=== PATIENT | male | born 2000 | race Caucasian/White ===

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

== ENCOUNTER 2021-11-06 22:07 | Emergency (ER) | payer OTHER ==
[2021-11-06 22:23] LABS: Basophils % (A) 0 %; Eosinophils # (A) 0.1 k/uL (0-0.7); Eosinophils % (A) 1 %; HCT 48.5 % (39.0-53.0); HGB 16.2 gm/dL (13.0-17.5); Lymphocytes % (A) 8 %; MCH 31.6 pg (25.0-35.0); MCHC 33.4 g/dL (31.0-37.0); MCV 94.5 fL (80.0-100.0); Mean Platelet Volume 8.8; Monocytes # (A) 0.5 k/uL (0-1.0); Monocytes % (A) 4 %; Neutrophils # (A) 11.2 k/uL (1.3-7.7); Neutrophils % (A) 86 %; Platelet Count 238 k/uL (150-450); RBC 5.14 m/uL (4.30-5.90); RDW 13.1 % (11.5-15.5)
[2021-11-06 22:36] LABS: ALT 60 U/L (4-49); AST 42 U/L (17-59); African American GFR (CKD) >90 (>60 ml/min/1.73 sqM); Albumin 4.8 g/dL (3.5-5.0); Alkaline Phosphatase 66 U/L (38-126); Amylase 61 U/L (30-110); Anion Gap 9 mmol/L; Blood Urea Nitrogen 15 mg/dL (9-20); Calcium 9.2 mg/dL (8.4-10.2); Carbon Dioxide 26 mmol/L (22-30); Chloride 104 mmol/L (98-107); Glucose 100 mg/dL (74-99); Lipase 37 U/L (23-300); Non-African American GFR(CKD) >90 (>60 ml/min/1.73 sqM); Potassium 4.7 mmol/L (3.5-5.1); Sodium 139 mmol/L (137-145); Total Bilirubin 1.3 mg/dL (0.2-1.3); Total Protein 8.2 g/dL (6.3-8.2)
--- NOTE | 2021-11-06 22:37 | XR ---
EXAMINATION TYPE: XR KUB DATE OF EXAM: 11/06/2021 COMPARISON: NONE HISTORY: Vomiting TECHNIQUE: 2 views upright FINDINGS: There is no sign of intestinal obstruction or pneumoperitoneum. Fecal pattern is normal. Th ere are no calcifications over the kidneys. Lung bases are clear. IMPRESSION: Nonacute abdomen.
[2021-11-06] MEDS ORDERED: ONDANSETRON ODT 4 MG TAB PO STA (22:42)
[2021-11-07] MEDS ORDERED: ONDANSETRON 4 MG ODT STARTER PACK 2 TAB BTL PO STA (00:15)
--- NOTE | 2021-11-07 00:31 | ED ---
Abdominal Pain HPI - General Chief Complaint: Abdominal Pain Stated Complaint: Vomiting,Nausea Time Seen by Provider: 11/07/21 00:04 Source: patient Mode of arrival: ambulatory - History of Present Illness Initial Comments: Final is a 21-year-old male presents the emergency department today via ambulance for evaluation of epigastric discomfort nausea and vomiting. Patient reports he's had nausea and vomiting throughout the day today. Patient did test positive or COVID 2 days ago but was not having any symptoms yesterday she did not believe it was related. No suspicious food intake no diarrhea. Patient received pain medication in route to the hospital he then had some vomiting upon waiting to be evaluated. He reports feeling much better after Zofran. - Related Data Home Medications Medication Instructions Recorded Confirmed Ibuprofen 800 mg PO DAILY PRN 10/10/17 10/10/17 Previous Rx's Medication Instructions Recorded HYDROcodone/APAP 5-325MG [[place] 1 tab PO Q6HR PRN #12 tab 10/11/17 5-325] Ibuprofen [Motrin] 600 mg PO Q8HR PRN #24 tab 10/11/17 Ondansetron Odt [Zofran Odt] 4 mg PO Q8HR PRN #10 tab 07/21/21 Allergies Allergy/AdvReac Type Severity Reaction Status Date / Time No Known Allergies Allergy Verified 11/06/21 22:41 Review of Systems ROS Statement: Those systems with pertinent positive or pertinent negative responses have been documented in the HPI. ROS Other: All systems not noted in ROS Statement are negative. Past Medical History Past Medical History: No Reported History History of Any Multi-Drug Resistant Organisms: None Reported Past Surgical History: No Surgical Hx Reported Past Psychological History: ADD/ADHD, Anxiety, Depression Smoking Status: Current every day smoker Past Alcohol Use History: None Reported Past Drug Use History: Marijuana General Exam - General Exam Comments Initial Comments: Physical Exam GENERAL: Patient is well-developed and well-nourished. Patient is nontoxic and well-hydrated and is in no distress. HENT: Normocephalic, Atraumatic. EYES: PERRL, EOMI PULMONARY: Unlabored respirations. CARDIOVASCULAR: RRR Warm and well perfused extremities ABDOMEN: Soft, Non-distended Non peritoneal SKIN: No rashes or bruising : Deferred NEUROLOGIC: Alert and oriented Normal speech Normal gait MUSCULOSKELETAL: Moving all extremities with no apparent injury PSYCHIATRIC: No SI/HI Course Vital Signs 11/06/21 22:30 Temperature 97.9 F Pulse Rate 63 Respiratory 19 Rate Blood Pressure 109/71 O2 Sat by Pulse 96 Oximetry Medical Decision Making - Medical Decision Making Patient labs and imaging were ordered from triage, patient's positive or COVID has mild leukocytosis other significant abnormalities Patient's feeling better after Zofran no further vomiting tolerating oral intake drinking water will be given a Zofran starter pack and prescribed Zofran for home. - Lab Data Result diagrams: 11/06/21 22:12 11/06/21 22:12 Lab Results 11/06/21 11/06/21 11/06/21 Range/Units 22:12 22:12 22:46 WBC 13.0 H (3.8-10.6) k/uL RBC 5.14 (4.30-5.90) m/uL Hgb 16.2 (13.0-17.5) gm/dL Hct 48.5 (39.0-53.0) % MCV 94.5 (80.0-100.0) fL MCH 31.6 (25.0-35.0) pg MCHC 33.4 (31.0-37.0) g/dL RDW 13.1 (11.5-15.5) % Plt Count 238 (150-450) k/uL MPV 8.8 Neutrophils % 86 % Lymphocytes % 8 % Monocytes % 4 % Eosinophils % 1 % Basophils % 0 % Neutrophils # 11.2 H (1.3-7.7) k/uL Lymphocytes # 1.0 (1.0-4.8) k/uL Monocytes # 0.5 (0-1.0) k/uL Eosinophils # 0.1 (0-0.7) k/uL Basophils # 0.0 (0-0.2) k/uL Sodium 139 (137-145) mmol/L Potassium 4.7 (3.5-5.1) mmol/L Chloride 104 (98-107) mmol/L Carbon Dioxide 26 (22-30) mmol/L Anion Gap 9 mmol/L BUN 15 (9-20) mg/dL Creatinine 0.95 (0.66-1.25) mg/dL Est GFR (CKD-EPI)AfAm >90 (>60 ml/min/1.73 sqM) Est GFR (CKD-EPI)NonAf >90 (>60 ml/min/1.73 sqM) Glucose 100 H (74-99) mg/dL Calcium 9.2 (8.4-10.2) mg/dL Total Bilirubin 1.3 (0.2-1.3) mg/dL AST 42 (17-59) U/L ALT 60 H (4-49) U/L Alkaline Phosphatase 66 (38-126) U/L Total Protein 8.2 (6.3-8.2) g/dL Albumin 4.8 (3.5-5.0) g/dL Amylase 61 (30-110) U/L Lipase 37 (23-300) U/L Coronavirus (PCR) (Not Detectd) Influenza Type A RNA Not Detected (Not Detectd) Influenza Type B (PCR) Not Detected (Not Detectd) 11/06/21 Range/Units 22:46 WBC (3.8-10.6) k/uL RBC (4.30-5.90) m/uL Hgb (13.0-17.5) gm/dL Hct (39.0-53.0) % MCV (80.0-100.0) fL MCH (25.0-35.0) pg MCHC (31.0-37.0) g/dL RDW (11.5-15.5) % Plt Count (150-450) k/uL MPV Neutrophils % % Lymphocytes % % Monocytes % % Eosinophils % % Basophils % % Neutrophils # (1.3-7.7) k/uL Lymphocytes # (1.0-4.8) k/uL Monocytes # (0-1.0) k/uL Eosinophils # (0-0.7) k/uL Basophils # (0-0.2) k/uL Sodium (137-145) mmol/L Potassium (3.5-5.1) mmol/L Chloride (98-107) mmol/L Carbon Dioxide (22-30) mmol/L Anion Gap mmol/L BUN (9-20) mg/dL Creatinine (0.66-1.25) mg/dL Est GFR (CKD-EPI)AfAm (>60 ml/min/1.73 sqM) Est GFR (CKD-EPI)NonAf (>60 ml/min/1.73 sqM) Glucose (74-99) mg/dL Calcium (8.4-10.2) mg/dL Total Bilirubin (0.2-1.3) mg/dL AST (17-59) U/L ALT (4-49) U/L Alkaline Phosphatase (38-126) U/L Total Protein (6.3-8.2) g/dL Albumin (3.5-5.0) g/dL Amylase (30-110) U/L Lipase (23-300) U/L Coronavirus (PCR) Detected A (Not Detectd) Influenza Type A RNA (Not Detectd) Influenza Type B (PCR) (Not Detectd) Disposition Clinical Impression: COVID-19, Nausea and vomiting Disposition: HOME SELF-CARE Condition: Stable Is patient prescribed a controlled substance at d/c from ED?: No Referrals: None,Stated [Primary Care Provider] - 1-2 days
[2021-11-07 00:47] VITALS: BP 122/82; PULSE 79; RESP 20; TEMP 98.8
== END 2021-11-07 00:47 | disposition home or self-care (01) ==
LOC: EC 22:07
DX: U07.1 COVID-19 (principal); F90.9 Attention-deficit hyperactivity disorder, unspecified type; F41.9 Anxiety disorder, unspecified; F32.A Depression, unspecified; F17.200 Nicotine dependence, unspecified, uncomplicated; F12.90 Cannabis use, unspecified, uncomplicated
CPT/HCPCS: 36415; 74018; 80053; 82150; 83690; 85025; 87502; 87635; 99284

== ENCOUNTER 2022-01-20 20:40 | Emergency (ER) | payer OTHER ==
[2022-01-20 20:53] VITALS: BP 118/59; PULSE 95; RESP 16; TEMP 98.1
--- NOTE | 2022-01-20 21:40 | ED ---
Alcohol HPI - General Chief Complaint: Alcohol Stated Complaint: ETOH, Mental Health Time Seen by Provider: 01/20/22 21:06 Source: patient, EMS Mode of arrival: EMS Limitations: no limitations - History of Present Illness Initial Comments: This patient is 21-year-old man who is complaining of depression and drinking. He does acknowledge that he some suicidal statements to his girlfriend earlier today. He has had previous psychiatric care and states that tried him with antidepressants but they seem to make him feel worse. He is not currently takin g any medications. Patient denies any injury or trauma related to drinking tonight. MD Complaint: alcohol intoxication Time Since Last Drink: 1 -: hour(s) Associated Symptoms: depression, suicidality Treatments Prior to Arrival: none Chronic Alcohol Use: Yes - Related Data Home Medications Medication Instructions Recorded Confirmed Ibuprofen 800 mg PO DAILY PRN 10/10/17 10/10/17 Previous Rx's Medication Instructions Recorded HYDROcodone/APAP 5-325MG [[place] 1 tab PO Q6HR PRN #12 tab 10/11/17 5-325] Ibuprofen [Motrin] 600 mg PO Q8HR PRN #24 tab 10/11/17 Ondansetron Odt [Zofran Odt] 4 mg PO Q8HR PRN #10 tab 07/21/21 Ondansetron [Zofran ODT] 4 mg PO Q8HR #12 tab 11/07/21 Allergies Allergy/AdvReac Type Severity Reaction Status Date / Time No Known Allergies Allergy Verified 11/06/21 22:41 Review of Systems ROS Statement: Those systems with pertinent positive or pertinent negative responses have been documented in the HPI. ROS Other: All systems not noted in ROS Statement are negative. Constitutional: Denies: fever, chills Respiratory: Denies: cough, dyspnea Cardiovascular: Denies: chest pain, palpitations Gastrointestinal: Denies: abdominal pain, vomiting, diarrhea Genitourinary: Denies: dysuria Neurological: Denies: headache, weakness Psychiatric: Reports: depression, suicidal thoughts. Denies: auditory hallucinations, visual hallucinations, homicidal thoughts Past Medical History Past Medical History: No Reported History History of Any Multi-Drug Resistant Organisms: None Reported Past Surgical History: No Surgical Hx Reported Past Psychological History: ADD/ADHD, Anxiety, Depression Smoking Status: Current every day smoker Past Alcohol Use History: None Reported Past Drug Use History: Marijuana General Exam Limitations: no limitations General appearance: alert, in no apparent distress Head exam: Present: atraumatic, normocephalic Eye exam: Present: normal appearance. Absent: scleral icterus, conjunctival injection Neck exam: Present: normal inspection, full ROM Respiratory exam: Present: normal lung sounds bilaterally. Absent: respiratory distress, wheezes, rales, rhonchi, stridor Cardiovascular Exam: Present: regular rate, normal rhythm, normal heart sounds. Absent: systolic murmur, diastolic murmur, rubs, gallop GI/Abdominal exam: Present: soft. Absent: distended, tenderness, guarding, rebound, rigid, mass Extremities exam: Present: normal inspection, normal capillary refill. Absent: pedal edema, calf tenderness Back exam: Present: normal inspection Neurological exam: Present: alert, oriented X3 Psychiatric exam: Present: depressed, suicidal ideation. Absent: agitated, anxious, flat affect, manic, homicidal ideation Skin exam: Present: warm, dry, intact, normal color. Absent: rash Course Vital Signs 01/20/22 20:49 Temperature 98.1 F Pulse Rate 95 Respiratory 16 Rate Blood Pressure 118/59 O2 Sat by Pulse 97 Oximetry Medical Decision Making - Medical Decision Making The patient is 21-year-old man here after he admits some suicidal statements earlier at home. The patient requested to go home. I did interview him and he states that he did make statements that were indicating suicidal ideation but that he had been drinking. He states that he has a lot to live for and inclu ding a young child at home. He states that he will return should should he start feeling worse. Patient advised not to drink any alcohol. Disposition Clinical Impression: Alcoholic intoxication, Mood disorder Disposition: HOME SELF-CARE Condition: Good Instructions (If sedation given, give patient instructions): Alcohol Intoxication (ED) Is patient prescribed a controlled substance at d/c from ED?: No Referrals: None,Stated [Primary Care Provider] - 1-2 days
[2022-01-20] MEDS ORDERED: LORazepam 2 MG/ML INJ IM STA (22:28)
== END 2022-01-20 23:01 | disposition home or self-care (01) ==
LOC: EC 20:40
DX: F10.129 Alcohol abuse with intoxication, unspecified (principal); F39 Unspecified mood [affective] disorder; F17.200 Nicotine dependence, unspecified, uncomplicated

== ENCOUNTER 2022-02-24 18:08 | Inpatient (IN) | payer MEDICAID, OTHER ==
[2022-02-24 18:22] LABS: Glucose,Whole Blood 88 mg/dL (70-110)
--- NOTE | 2022-02-24 18:23 | ED ---
Trauma HPI - General Stated Complaint: Trauma Time Seen by Provider: 02/24/22 18:08 Source: patient, RN notes reviewed - History of Present Illness Initial Comments: 21-year-old male history of depression who apparently try to hang himself with a rope dog leash prior to arrival he states he was about half a foot off the ground rope broke however before he passed out he did hit his head when he fell he denies a loss of function is upper or lower extremities he does admit to drinking alcohol today. He was found by paramedics to have some abrasion to the anterior neck consistent with the reports of trying to hang himself. Patient denies any shortness of breath difficulty with swallowing or speech at this time. No deficits to his upper or lower extremities. He did come in with a cervical collar on. MD Complaint: injury - Related Data Home Medications Medication Instructions Recorded Confirmed No Known Home Medications 02/24/22 02/24/22 Allergies Allergy/AdvReac Type Severity Reaction Status Date / Time No Known Allergies Allergy Verified 02/24/22 19:52 Review of Systems ROS Statement: Those systems with pertinent positive or pertinent negative responses have been documented in the HPI. ROS Other: All systems not noted in ROS Statement are negative. Past Medical History Past Medical History: No Reported History History of Any Multi-Drug Resistant Organisms: None Reported Past Surgical History: No Surgical Hx Reported Past Psychological History: ADD/ADHD, Anxiety, Depression Smoking Status: Current every day smoker Past Alcohol Use History: None Reported Past Drug Use History: Marijuana General Exam - General Exam Comments Initial Comments: This is a well-developed well-nourished awake alert oriented 4 male General appearance: alert, anxious Head exam: Present: atraumatic, normocephalic, normal inspection Eye exam: Present: normal appearance, PERRL, EOMI. Absent: scleral icterus, conjunctival injection, periorbital swelling ENT exam: Present: normal exam, normal oropharynx, mucous membranes moist Neck exam: Present: normal inspection, other (Cervical collar in place superficial abrasion seen over the anterior upper neck no localized edema no stridor JVD or bruits). Absent: tenderness, meningismus, lymphadenopathy Respiratory exam: Present: normal lung sounds bilaterally. Absent: respiratory distress, wheezes, rales, rhonchi, stridor Cardiovascular Exam: Present: regular rate, normal rhythm, normal heart sounds. Absent: systolic murmur, diastolic murmur, rubs, gallop, clicks GI/Abdominal exam: Present: soft, normal bowel sounds. Absent: distended, tenderness, guarding, rebound, rigid Extremities exam: Present: normal inspection, full ROM, normal capillary refill. Absent: tenderness, pedal edema, joint swelling, calf tenderness Back exam: Present: normal inspection Neurological exam: Present: alert, oriented X3, CN II-XII intact Psychiatric exam: Present: normal affect, normal mood Skin exam: Present: warm, dry, normal color, other (As noted above). Absent: rash Course Vital Signs 02/24/22 18:41 Temperature 98 F Pulse Rate 76 Respiratory 16 Rate Blood Pressure 122/63 O2 Sat by Pulse 97 Oximetry Medical Decision Making - Medical Decision Making Patient was activated priority 2 trauma did discuss case with Dr. Richardson. Patient is now medically cleared for psychiatric evaluation patient was eval uated by the EPS service she will be admitted inpatient for further evaluation treatment for suicidal thoughts and depression. - Lab Data Result diagrams: 02/24/22 18:31 02/24/22 18:31 Lab Results 02/24/22 02/24/22 02/24/22 Range/Units 18:20 18:31 18:31 WBC 8.5 (3.8-10.6) k/uL RBC 5.17 (4.30-5.90) m/uL Hgb 16.1 (13.0-17.5) gm/dL Hct 49.9 (39.0-53.0) % MCV 96.4 (80.0-100.0) fL MCH 31.2 (25.0-35.0) pg MCHC 32.4 (31.0-37.0) g/dL RDW 13.4 (11.5-15.5) % Plt Count 187 (150-450) k/uL MPV 8.7 Neutrophils % 71 % Lymphocytes % 21 % Monocytes % 6 % Eosinophils % 1 % Basophils % 1 % Neutrophils # 6.0 (1.3-7.7) k/uL Lymphocytes # 1.8 (1.0-4.8) k/uL Monocytes # 0.5 (0-1.0) k/uL Eosinophils # 0.1 (0-0.7) k/uL Basophils # 0.1 (0-0.2) k/uL PT 10.9 (9.0-12.0) sec INR 1.0 (<1.2) APTT 26.5 (22.0-30.0) sec Sodium (137-145) mmol/L Potassium (3.5-5.1) mmol/L Chloride (98-107) mmol/L Carbon Dioxide (22-30) mmol/L Anion Gap mmol/L BUN (9-20) mg/dL Creatinine (0.66-1.25) mg/dL Est GFR (CKD-EPI)AfAm (>60 ml/min/1.73 sqM) Est GFR (CKD-EPI)NonAf (>60 ml/min/1.73 sqM) Glucose (74-99) mg/dL POC Glucose (mg/dL) 88 (70-110) mg/dL POC Glu Chief Technical Officer ID Edi Russell Plasma Lactic Acid Hieu (0.7-2.0) mmol/L Calcium (8.4-10.2) mg/dL Total Bilirubin (0.2-1.3) mg/dL AST (17-59) U/L ALT (4-49) U/L Alkaline Phosphatase (38-126) U/L Troponin I (0.000-0.034) ng/mL Total Protein (6.3-8.2) g/dL Albumin (3.5-5.0) g/dL Serum Alcohol mg/dL 02/24/22 02/24/22 02/24/22 Range/Units 18:31 18:31 18:31 WBC (3.8-10.6) k/uL RBC (4.30-5.90) m/uL Hgb (13.0-17.5) gm/dL Hct (39.0-53.0) % MCV (80.0-100.0) fL MCH (25.0-35.0) pg MCHC (31.0-37.0) g/dL RDW (11.5-15.5) % Plt Count (150-450) k/uL MPV Neutrophils % % Lymphocytes % % Monocytes % % Eosinophils % % Basophils % % Neutrophils # (1.3-7.7) k/uL Lymphocytes # (1.0-4.8) k/uL Monocytes # (0-1.0) k/uL Eosinophils # (0-0.7) k/uL Basophils # (0-0.2) k/uL PT (9.0-12.0) sec INR (<1.2) APTT (22.0-30.0) sec Sodium 142 (137-145) mmol/L Potassium 4.7 (3.5-5.1) mmol/L Chloride 96 L (98-107) mmol/L Carbon Dioxide 31 H (22-30) mmol/L Anion Gap 15 mmol/L BUN 11 (9-20) mg/dL Creatinine 0.87 (0.66-1.25) mg/dL Est GFR (CKD-EPI)AfAm >90 (>60 ml/min/1.73 sqM) Est GFR (CKD-EPI)NonAf >90 (>60 ml/min/1.73 sqM) Glucose 87 (74-99) mg/dL POC Glucose (mg/dL) (70-110) mg/dL POC Glu Chief Technical Officer ID Plasma Lactic Acid Hieu 3.0 H* (0.7-2.0) mmol/L Calcium 9.9 (8.4-10.2) mg/dL Total Bilirubin 0.9 (0.2-1.3) mg/dL AST 37 (17-59) U/L ALT 51 H (4-49) U/L Alkaline Phosphatase 70 (38-126) U/L Troponin I <0.012 (0.000-0.034) ng/mL Total Protein 7.9 (6.3-8.2) g/dL Albumin 4.8 (3.5-5.0) g/dL Serum Alcohol <10 mg/dL - EKG Data -: EKG Interpreted by Me EKG shows normal: sinus rhythm EKG Comments: Sinus rhythm a 77. Interval 150 QRS duration 100 QT since QTC 360/400 nonspecific T-wave configuration - Radiology Data Radiology results: report reviewed (Image reviewed as well as report no acute findings.), image reviewed Critical Care Time Critical Care Time: Yes Total Critical Care Time: 39 Critical Care Time: Critical care time including initial presentation with history physical discussed with paramedics labs x-rays reevaluation patient on several occasions discussion with family. Discussed with the EPS service documentation the above review of old charting was available. Disposition Clinical Impression: Depression, Attempted suicide, Hanging, Neck abrasion Disposition: TRANSFER TO PSYCH HOSP/UNIT Condition: Stable Referrals: None,Stated [Primary Care Provider] - 1-2 days Decision Date: 02/24/22 Decision Time: 20:55
[2022-02-24 19:02] LABS: Basophils # (A) 0.1 k/uL (0-0.2); Basophils % (A) 1 %; Eosinophils # (A) 0.1 k/uL (0-0.7); Eosinophils % (A) 1 %; HCT 49.9 % (39.0-53.0); HGB 16.1 gm/dL (13.0-17.5); Lymphocytes # (A) 1.8 k/uL (1.0-4.8); Lymphocytes % (A) 21 %; MCH 31.2 pg (25.0-35.0); MCHC 32.4 g/dL (31.0-37.0); MCV 96.4 fL (80.0-100.0); Mean Platelet Volume 8.7; Monocytes # (A) 0.5 k/uL (0-1.0); Monocytes % (A) 6 %; Neutrophils % (A) 71 %; Platelet Count 187 k/uL (150-450); RBC 5.17 m/uL (4.30-5.90); RDW 13.4 % (11.5-15.5); WBC 8.5 k/uL (3.8-10.6)
[2022-02-24 19:11] LABS: Partial Thromboplastin Time 26.5 sec (22.0-30.0); Prothrombin Time 10.9 sec (9.0-12.0)
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
[2022-02-24 19:16] LABS: ALT 51 U/L (4-49); AST 37 U/L (17-59); African American GFR (CKD) >90 (>60 ml/min/1.73 sqM); Albumin 4.8 g/dL (3.5-5.0); Alcohol <10 mg/dL; Alkaline Phosphatase 70 U/L (38-126); Anion Gap 15 mmol/L; Blood Urea Nitrogen 11 mg/dL (9-20); Calcium 9.9 mg/dL (8.4-10.2); Carbon Dioxide 31 mmol/L (22-30); Chloride 96 mmol/L (98-107); Glucose 87 mg/dL (74-99); Non-African American GFR(CKD) >90 (>60 ml/min/1.73 sqM); Potassium 4.7 mmol/L (3.5-5.1); Sodium 142 mmol/L (137-145); Total Bilirubin 0.9 mg/dL (0.2-1.3); Total Protein 7.9 g/dL (6.3-8.2)
[2022-02-24] MEDS ORDERED: SODIUM CHLORIDE 0.9% 1,000 ML IV STA (19:29)
[2022-02-24] MEDS ORDERED: HALOPERIDOL LACTATE 5 MG/ML 1 ML VIAL IVP STA (21:27)
[2022-02-24] MEDS ORDERED: LORazepam 2 MG/ML INJ IV STA (21:28)
[2022-02-24 22:12] LABS: Amphetamine Screen,Urine Not Detected (NotDetected); Barbiturate Screen,Urine Not Detected (NotDetected); Benzodiazepines Screen,Urine Not Detected (NotDetected); Cocaine Screen,Urine Not Detected (NotDetected); Methadone Screen, Urine Not Detected (NotDetected); Opiate Screen,Urine Not Detected (NotDetected); Oxycodone Screen, Urine Not Detected (NotDetected); Phencyclidine Screen,Urine Not Detected (NotDetected); Tricyclic Antidepressant,Urine Not Detected (NotDetected); Urn Cannabinoid Scrn Detected (NotDetected)
[2022-02-24] MEDS ORDERED: HALOPERIDOL LACTATE 5 MG/ML 1 ML VIAL IM STA (22:19)
[2022-02-24] MEDS ORDERED: diphenhydrAMINE 50 MG/ML 1 ML VIAL IVP STA (22:20)
[2022-02-25] MEDS ORDERED: MAG HYDROX/AL HYDROX/SIMETH 30 ML CUP PO PRN (00:05)
[2022-02-25] MEDS ORDERED: LORazepam 1 MG TAB PO PRN (00:05)
[2022-02-25] MEDS ORDERED: HALOPERIDOL LACTATE 5 MG/ML 1 ML VIAL IM PRN (00:05)
[2022-02-25] MEDS ORDERED: ACETAMINOPHEN TAB 325 MG TAB PO PRN (00:05)
[2022-02-25] MEDS ORDERED: MAGNESIUM HYDROXIDE 2,400 MG/10 ML CUP PO PRN (00:05)
[2022-02-25] MEDS ORDERED: LORazepam 2 MG/ML INJ IM PRN (00:09)
[2022-02-25] MEDS ORDERED: haloperidoL 5 MG TAB PO PRN (00:10)
[2022-02-25] MEDS ORDERED: NICOTINE 14MG/24HR PATCH TRANSDERM SCH (09:00)
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
[2022-02-25] MEDS: FLUoxetine HCL 10 MG CAP PO SCH (17:40)
[2022-02-25] MEDS: NICOTINE GUM (POLACRILEX) 2 MG GUM BUCCAL PRN ×2 (18:23→20:41)
--- NOTE | 2022-02-25 23:15 | P.CONS ---
History of Present Illness - Reason for Consult Consult date: 02/25/22 - History of Present Illness The patient is a 21-year-old male with no known PMH who was brought into the emergency room by EMS after he was found attempting to hang himself. The patient was admitted to the mental health unit where he was seen and evaluated. The patient was reluctant to talk about the episode but stated that he had been drinking, which led to his erratic behavior. He denied any suicidal ideation. He denied any chronic medical illnesses. Reports only occasional alcohol use which she is trying to quit. Denied history of alcohol withdrawal. Denied experiencing chest discomfort, shortness of breath, fever, chills, cough, nausea, vomiting, abdominal pain, diarrhea. The patient's laboratory outpatient in the emergency room was remarkable for lactic acidosis of 3.0 with urine tox positive for marijuana. Review of systems: Pertinent positives and negatives as discussed in HPI, a complete review of systems was performed and all other systems are negative. Physical examination: General: non toxic, no distress, appears at stated age, normal weight Derm: no unusual rashes/lesions, no unusual ecchymoses, warm, dry Head: atraumatic, normocephalic, symmetric Eyes: EOMI, no lid lag, anicteric sclera ENT: Nose and ears atraumatic, no thrush, no pharyngeal erythema Neck: trachea midline, supple Mouth: no lip lesion, mucus membranes moist Cardiovascular: S1S2 reg, no murmur, no edema Lungs: CTA bilateral, no rhonchi, no rales , no accessory muscle use Abdominal: soft, nontender to palpation, no guarding Ext: no gross muscle atrophy, no contractures, Neuro: No gross focal neuro deficits noted Psych: Alert, oriented, appropriate affect Assessment/plan Marijuana and alcohol abuse -Advised on importance of cessation Depression with suicidal ideation -As per psychiatry Thank you for allowing us to participate in the care of this patient. We will follow peripherally. Do not hesitate to contact us with questions. Someone can be reached from the [facility] hospitalist group at all hours of the day at [phone]. Past Medical History Past Medical History: No Reported History History of Any Multi-Drug Resistant Organisms: None Reported Past Surgical History: No Surgical Hx Reported Past Psychological History: ADD/ADHD, Anxiety, Depression Smoking Status: Current every day smoker Past Alcohol Use History: None Reported Past Drug Use History: Marijuana - Past Family History Mother Family Medical History: Hypertension Medications and Allergies Home Medications Medication Instructions Recorded Confirmed Type No Known Home Medications 02/24/22 02/24/22 History Allergies Allergy/AdvReac Type Severity Reaction Status Date / Time No Known Allergies Allergy Verified 02/24/22 19:52 Physical Exam Vitals: Vital Signs Temp Pulse Resp BP 02/25/22 00:33 98.0 F 93 16 136/73 Results CBC & Chem 7: 02/24/22 18:31 02/24/22 18:31 Labs: Abnormal Lab Results - Last 24 Hours (Table) 02/24/22 Range/Units 21:32 U Marijuana (THC) Screen Detected H (NotDetected)
[2022-02-26] MEDS: FLUoxetine HCL 10 MG CAP PO SCH (08:37)
[2022-02-26] MEDS: NICOTINE GUM (POLACRILEX) 2 MG GUM BUCCAL PRN ×3 (11:00→20:37)
[2022-02-26 12:35] LABS: Basophils % (A) 0 %; Eosinophils % (A) 0 %; HCT 51.7 % (39.0-53.0); HGB 17.2 gm/dL (13.0-17.5); Lymphocytes # (A) 1.4 k/uL (1.0-4.8); Lymphocytes % (A) 19 %; MCH 32.7 pg (25.0-35.0); MCHC 33.3 g/dL (31.0-37.0); MCV 98.2 fL (80.0-100.0); Mean Platelet Volume 8.5; Monocytes # (A) 0.4 k/uL (0-1.0); Monocytes % (A) 6 %; Neutrophils # (A) 5.5 k/uL (1.3-7.7); Neutrophils % (A) 72 %; Platelet Count 206 k/uL (150-450); RBC 5.26 m/uL (4.30-5.90); RDW 13.6 % (11.5-15.5); WBC 7.6 k/uL (3.8-10.6)
[2022-02-26 12:48] LABS: ALT 62 U/L (4-49); AST 40 U/L (17-59); African American GFR (CKD) >90 (>60 ml/min/1.73 sqM); Alkaline Phosphatase 88 U/L (38-126); Anion Gap 14 mmol/L; Blood Urea Nitrogen 14 mg/dL (9-20); Calcium 10.2 mg/dL (8.4-10.2); Carbon Dioxide 28 mmol/L (22-30); Chloride 97 mmol/L (98-107); Glucose 101 mg/dL (74-99); Non-African American GFR(CKD) >90 (>60 ml/min/1.73 sqM); Potassium 5.2 mmol/L (3.5-5.1); Sodium 139 mmol/L (137-145); Total Bilirubin 1.4 mg/dL (0.2-1.3); Total Protein 8.5 g/dL (6.3-8.2)
--- NOTE | 2022-02-26 15:55 | P.PN ---
Progress Note - Text Progress Note Date: 02/26/22 Interval history: Patient was seen attending group and was directable and agreeable to speak with filing writer. He reports improved mood, and reports he slept well, but overall appears anxious on assessment. At this time, patient denies any suicidal or homicidal ideation, intent or plan. Denies any auditory or visual hallucinations. Patient denies any side effects from the medications and has been compliant with meds. Mental status exam: General Appearance: Patient appears to be stated age, has tattoos, improved hygiene. Behavior: Patient appears anxious without any agitated behavior. Speech: Patient's speech is fluent and non-pressured. Mood/Affect: Patient reports their mood is better, affect appears anxious and constricted. Suicidality/Homicidality: Patient denies having any homicidal ideation intent or plan. Denies any suicidal ideation, intent or plan. Perceptions: Patient denies any visual hallucinations and denies any auditory hallucinations. Though content/process: There is no evidence of any delusional thought content and thought process is linear and goal-directed. Memory and concentration: AOX3, grossly intact for the purposes of this session Judgment and insight: improving mildly Assessment/Plan: Continue with current diagnosis. Patient continues to meet criteria for inpatient psychiatric admission for symptom stabilization and safety. Will increase his Prozac to 20 mg daily for anxiety. Monitor for medication compliance and for any psychotropic medication side effects. Will continue to monitor ongoing response to treatment. Encouraged participation in milieu. He would like to attend outpatient substance abuse treatment after discharge and declines residential substance abuse treatment.
[2022-02-27] MEDS ORDERED: FLUoxetine HCL 20 MG CAP PO SCH (09:00)
[2022-02-27] MEDS: NICOTINE GUM (POLACRILEX) 2 MG GUM BUCCAL PRN ×3 (12:45→20:07)
[2022-02-28 06:38] VITALS: BP 109/65; PULSE 60; RESP 16; TEMP 98
[2022-02-28] MEDS: NICOTINE GUM (POLACRILEX) 2 MG GUM BUCCAL PRN (09:23)
--- NOTE | 2022-02-28 11:37 | P.PN ---
Progress Note - Text Progress Note Date: 02/27/22 S&O: Patient was seen in rounds. He was admitted on 02/24/2022 when he got intoxicated and tried to hang himself. Computed tomography scan of the neck and head where within normal limits. He said he does not drink on a regular basis but sometimes he goes on heavy binging. Said he was drinking since about 10:00 in the morning hard liquor along with high alcohol containing beer. He insists that that he did not have any other issues to make him to kill himself. He said he has a 5-month-old daughter and a girlfriend who he loves too much to kill himself. He said he smokes pot here and there but again he said he doesn't do it on a regular basis. He denies any ongoing mental health issues. His psychiatric H&P shows the diagnosis of unspecified depressive disorder unspecified anxiety disorder alcohol and cannabis use disorder mild to moderate. He was started on Prozac 20 mg a day and says he feels better after 2 days of its use. He was counseled about the ineffectiveness of Prozac in 2 days and was suggested that he feels better because alcohol had left his system, he is happy that he did not and is able to appreciate that he has a loving girlfriend and a daughter which probably made him feel better since Prozac doesn't work that quickly. He agreed. He said he will stop drinking and smoking pot, and tried to stay clean get a job and be with his family. This is a right ambulatory male with good hygiene. He has multiple tattoos. He is polite friendly cheerful and cooperative. He does not have any psychomotor agitation or retardation. His speech is spontaneous relevant and goal-directed. His mood is cheerful and affect is appropriate. He denies any hallucinations delusional thinking suicide and homicide thoughts. His sensorium is clear. A&P: Appears to have had acute alcohol intoxication delirium resulting in attempting to hang himself. Does not have enough information to make the diagnosis of anxiety disorder or depressive disorder. He agreed to stop Prozac and consider for discharge tomorrow.
--- NOTE | 2022-02-28 11:37 | P.DS ---
Providers Date of admission: 02/25/22 00:01 Expected date of discharge: 02/28/22 Attending physician: Jean Begum MD Consults: 02/25/22 00:05 Consult Physician Routine Consulting Provider: Selma Newell Consult Reason/Comments: h&p and medical follow up Do you want consulting provider notified?: Yes Primary care physician: Stated None Hospital Course: Patient had his psychiatric H&P done by Dr. Rader on 02/25/2022 and physical examination done by Dr. Rosario on the same day. He had a computed tomography scan of the head didn't neck to evaluate possible injury after he had tried to hang himself. It did not show any injury or abnormality. Patient was started on Prozac 10 mg a day which was increased to [address] Rader for possible anxiety. When I saw him on 02/27/2022 he did not provide any information to make any diagnosis other alcohol intoxication and alcohol use disorder. In view of this his Prozac was discontinued. Patient continued to do well without any medication and did not have any behavioral problems. He had insisted that he was not suicidal and did what he did only when he was intoxicated on alcohol. His condition was discussed with the treatment team this morning and it was agreed to discharge him with outpatient follow-up with the therapist/counselor regarding alcohol use and learning better coping skills. He was advised about this and he agreed with this plan. Plan - Discharge Summary Discharge Rx Participant: No New Discharge Prescriptions: No Action No Known Home Medications Discharge Medication List No Known Home Medications 02/24/22 [History] Activity/Diet/Wound Care/Special Instructions: Avoid the use of street drugs and alcohol. Take all prescriptions as prescribed. When you are in need of refills on your medications, please contact your medical provider and/or outpatient psychiatrist to have this done. Please go to scheduled outpatient appointment for aftercare treatment. If symptoms return or become worse, call the crisis line at and/or go to the nearest emergency room for evaluation. Discharge Disposition: HOME SELF-CARE Plan of Treatment: Patient will be referred to see a alcohol counselor/therapist regarding his alcohol use and to learn better coping skills.
== END 2022-02-28 13:26 | disposition home or self-care (01) | DRG 881 ==
LOC: EC 18:08 → 3MHU 02-25 00:01
PROVIDERS: ADMIT Psychiatry & Neurology Psychiatry; ATTEND Psychiatry & Neurology Psychiatry
DX: F32.A Depression, unspecified (principal); T71.162A Asphyxiation due to hanging, intentional self-harm, initial encounter; S10.91XA Abrasion of unspecified part of neck, initial encounter; F41.9 Anxiety disorder, unspecified; F10.129 Alcohol abuse with intoxication, unspecified; F12.90 Cannabis use, unspecified, uncomplicated; F17.200 Nicotine dependence, unspecified, uncomplicated; Z20.822 Contact with and (suspected) exposure to COVID-19
CPT/HCPCS: 36415; 70450; 71045; 72125; 80053; 80306; 80320; 83605; 84443; 84484; 85025; 85610; 85730; 87635; 99285; 99291